=== PATIENT | female | born 1985 | race Caucasian/White ===

== ENCOUNTER 2019-04-20 23:22 | Emergency (ER) | payer SELFPAY ==
[~2019-04-20] VITALS: Ht 154.9 cm; Wt 75.7 kg
[2019-04-20 23:36] VITALS: Ht 154.9 cm; Wt 75.7 kg
[2019-04-21 00:47] LABS: BASOPHIL % 0.4 % (0-2); PLATELET COUNT 247 x10^3mcL (130-400); RED CELL DISTRIBUTION WIDTH 13.4 % (11.5-14.5)
[2019-04-21 00:52] LABS: AMPHETAMINE QUAL UR NONE DETECTED (See below)
[2019-04-21 01:03] LABS: CALCIUM 8.3 mg/dL (8.5-10.1); CARBON DIOXIDE 28.3 mmol/L (21-32); CHLORIDE SERUM 104 mmol/L (98-107); CREATININE SERUM 0.9 mg/dL (0.6-1.0); GFR1 > 60 mL/min; GLUCOSE SERUM 132 mg/dL (74-106); POTASSIUM SERUM 3.6 mmol/L (3.5-5.1); SODIUM SERUM 140 mmol/L (136-145)
[2019-04-21 01:12] LABS: ALBUMIN 3.4 g/dL (3.4-5.0); ALKALINE PHOSPHATASE 112 U/L (46-116); ALT/SGPT 50 U/L (14-59); AST/SGOT 29 U/L (15-37); BILIRUBIN TOTAL 0.34 mg/dL (0.20-1.00); T4(THYROXINE) 7.4 ug/dL (4.7-13.3); TOTAL PROTEIN, SERUM 7.9 g/dL (6.4-8.2)
[2019-04-21 01:57] VITALS: BP 108/70
== END 2019-04-21 01:57 | disposition home or self-care (01) ==
LOC: ED 23:22
PROVIDERS: Emergency Medicine
DX: R07.0 Pain in throat (principal); F41.9 Anxiety disorder, unspecified; R13.10 Dysphagia, unspecified; R07.89 Other chest pain
CPT/HCPCS: 36415